=== PATIENT | male | born 1985 | race Caucasian/White ===

== ENCOUNTER 2022-08-26 13:44 | Emergency (ER) | payer SELFPAY ==
[~2022-08-26] VITALS: Ht 175.3 cm; Wt 88.5 kg
[2022-08-26 13:52] VITALS: BP 138/89
[2022-08-26] MEDS ORDERED: ACETAMINOPHEN 325MG TABLET PO ONE (14:15)
== END 2022-08-26 16:25 | disposition home or self-care (01) ==
LOC: ER 13:44
DX: S01.01XA Laceration without foreign body of scalp, initial encounter (principal); W01.0XXA Fall on same level from slipping, tripping and stumbling without subsequent striking against object, initial encounter; Y93.89 Activity, other specified; Y92.89 Other specified places as the place of occurrence of the external cause
CPT/HCPCS: 12001; 99284

== ENCOUNTER 2022-09-02 13:36 | Emergency (ER) | payer SELFPAY ==
[2022-09-02 16:17] VITALS: BP 126/82
== END 2022-09-02 16:34 | disposition home or self-care (01) ==
LOC: ER 13:36
DX: Z48.02 Encounter for removal of sutures (principal)
CPT/HCPCS: 99281; Z7610